=== PATIENT | female | born 1970 | race African-American/Black ===

== ENCOUNTER 2022-05-24 17:53 | Emergency (ER) | payer BC, SELFPAY | END 2022-05-24 20:58 | disposition home or self-care (01) | LOC: CSHERS 17:53 | DX: E86.0 Dehydration (principal); I10 Essential (primary) hypertension; Z79.899 Other long term (current) drug therapy | CPT/HCPCS: 99284 ==

== ENCOUNTER 2025-05-24 19:13 | Emergency (ER) | payer OTHER ==
[2025-05-24 20:30] LABS: #Basophils Less than 0.03 10x3/uL (0.0-0.2); #Eosinophils 0.26 10x3/uL (0.0-0.5); #Monocytes 0.40 10x3/uL (0.0-1.1); #Neutrophils 4.39 10x3/uL (1.5-8.4); %Basophils 0.3 % (0.0-2.0); %Eosinophils 4.1 % (0.0-6.0); %Lymphocytes 20.3 % (18.0-47.0); %Monocytes 6.3 % (0.0-10.0); %Neutrophils 68.7 % (40.0-75.0); Hematocrit 34.0 % (34.9-44.5); Hemoglobin 11.7 g/dL (12.0-15.5); Mean Corpuscular Hemoglobin 27.5 pg (27.0-33.0); Mean Corpuscular Volume 79.8 fL (81.6-98.3); Platelet Count 215 10x3/uL (150-450); Red Blood Cell (RBC) Count 4.26 10x6/uL (3.90-5.03); White Blood Cell (WBC) Count 6.39 10x3/uL (3.5-10.5)
[2025-05-24 20:43] LABS: Anion Gap 10 mmol/L (10-20); BUN (Urea Nitrogen) 10 mg/dL (9.8-20.1); Calc. Creatinine Clearance 0 mL/min (70-130); Calcium 8.2 mg/dL (7.8-10.44); Carbon Dioxide 24 mmol/L (22-29); Chloride 110 mmol/L (98-107); Glucose 153 mg/dL (70-105); Magnesium 1.8 mg/dL (1.6-2.6); Potassium 3.6 mmol/L (3.5-5.1); Sodium 140 mmol/L (136-145)
[2025-05-24 20:50] LABS: Troponin I Less than 0.010 ng/mL (< 0.028)
== END 2025-05-24 22:23 | disposition home or self-care (01) ==
LOC: CSHERS 19:13
DX: R00.2 Palpitations (principal); I10 Essential (primary) hypertension; Z79.899 Other long term (current) drug therapy
CPT/HCPCS: 36415; 80048; 83735; 84484; 85025; 93005; 99285